=== PATIENT | female | born 1970 | race African-American/Black ===

== ENCOUNTER 2016-11-25 15:47 | Day surgery (SDC) | payer OTHER ==
[2016-11-21 12:45] VITALS: BMI 23.6
[2016-11-25] MEDS ORDERED: PROPOFOL 20 ML ONE (17:10)
[2016-11-25] MEDS ORDERED: MIDAZOLAM HCL 2 MG/2 ML SINGLE DOSE VIAL ONE (17:10)
[2016-11-25] MEDS ORDERED: LEVOFLOXACIN 500 MG PREMIX BAG IVPB ONE (17:17)
[2016-11-25] MEDS ORDERED: ONDANSETRON 4 MG/2 ML VIAL IVPUSH PRN (17:50)
[2016-11-25] MEDS ORDERED: ACETAMINOPHEN 325 MG TABLET (FP) PO PRN (17:50)
[2016-11-25 18:11] VITALS: TEMP 98.5
--- NOTE | 2016-11-25 18:22 | OP ---
Operative Note - Note: Operative Date: 11/25/16 Pre-Operative Diagnosis: right renal stones Operation: right ESWL Findings: 4mm x 4mm right mid pole renal stone and 3mm x 3mm right lower pole renal stone Post-Operative Diagnosis: Same as Pre-op Surgeon: Gentry Keating Anesthesia: Fractional
[2016-11-25 19:18] VITALS: BP 112/68; PULSE 63
--- NOTE | 2016-11-26 09:47 | OP ---
DATE OF OPERATION: 11/25/2016 PREOPERATIVE DIAGNOSIS: Right renal stones. POSTOPERATIVE DIAGNOSIS: Right renal stones. PROCEDURE: Right extracorporeal shock wave lithotripsy. ATTENDING SURGEON: Juana Roy MD ANESTHESIA: Fractional. DESCRIPTION OF OPERATION: Patient was brought in the operating room and placed in supine position on the operating room table. Ultrasonography and fluoroscopy were performed. Two stones were identified in the right kidney, a mid-pole stone measuring 4 mm x 4 mm and a lower-pole stone measuring 3 mm x 3 mm. At this point, fractional anesthesia and antibiotics were administered; 1500 impulses at 20 joules of power were administered to each of the stones with excellent fragmentation under real-time ultrasonography and fluoroscopy. No complications were noted. Disposition of the patient was to recovery room. JUANA ROY M.D. /[id number]
== END 2016-11-25 19:18 | disposition home or self-care (01) ==
LOC: JASU-SURG 15:47
PROVIDERS: ATTEND Urology
PROC: 0TF3XZZ Fragmentation in Right Kidney Pelvis, External Approach (ICD-10-PCS; principal; 2016-11-25 17:15)
DX: N20.0 Calculus of kidney (principal)
CPT/HCPCS: 84703; 94760

== ENCOUNTER 2022-08-25 20:27 | Emergency (ER) | payer BC, OTHER ==
[2022-08-25 20:31] VITALS: BP 165/112; PULSE 85; RESP 18; TEMP 97.9; BMI 23.1
[2022-08-25] MEDS ORDERED: ONDANSETRON *ODT* 4 MG TABLET SL ONE ×2 (21:04→22:18)
[2022-08-25] MEDS ORDERED: ONDANSETRON *ODT* 4 MG TABLET ONE ×2 (21:24→22:41)
== END 2022-08-25 23:28 | disposition home or self-care (01) ==
LOC: JER 20:27
DX: R11.2 Nausea with vomiting, unspecified (principal); R19.7 Diarrhea, unspecified; A05.9 Bacterial foodborne intoxication, unspecified
CPT/HCPCS: 99283-25; Q0162

== ENCOUNTER 2022-10-07 06:09 | Emergency (ER) | payer BC ==
[2022-10-07 06:16] VITALS: TEMP 98.3; BMI 23.5
[2022-10-07] MEDS ORDERED: DEXAMETHASONE SOD PHOSPHATE 10 MG/1 ML VIAL ONE (06:17)
[2022-10-07] MEDS ORDERED: ALBUTEROL SO4 2.5/IPRATROPIUM 0.5 INH SOL 3 ML VIAL.NEB. NEB ONE (06:17)
[2022-10-07] MEDS ORDERED: DEXAMETHASONE SOD PHOSPHATE 10 MG/1 ML VIAL IM ONE (06:20)
[2022-10-07] MEDS: ALBUTEROL SO4 2.5/IPRATROPIUM 0.5 INH SOL 3 ML VIAL.NEB. NEB SCH ×3 (06:24→06:27)
[2022-10-07] MEDS ORDERED: MAGNESIUM SULF 50% (8.12 MEQ/2 ML-1 GM VIAL) IVPB ONE (06:33)
[2022-10-07] MEDS ORDERED: MAGNESIUM SULFATE IN WATER 2 GM/50 ML IVPB IVPB ONE (07:15)
[2022-10-07 07:27] LABS: BASO % 0.5 % (0-2.0); EOS % 3.2 % (0-4.5); HEMATOCRIT 35.3 % (32.4-45.2); HEMOGLOBIN 10.9 GM/dL (10.7-15.3); LYMPH % 20.7 % (8-40); MCH 22.6 pg (25.7-33.7); MCHC 30.7 g/dl (32.0-36.0); MEAN CELL VOLUME 73.5 fl (80-96); MEAN PLT VOLUME 9.5 fl (7.5-11.1); MONO % 7.3 % (3.8-10.2); NEUT % 68.3 % (42.8-82.8); PLATELET COUNT 254 10^3/uL (134-434); RBC 4.81 M/mm3 (3.60-5.2); RDW 18.2 % (11.6-15.6); WHITE BLOOD COUNT 7.6 K/mm3 (4.0-10.0)
[2022-10-07 07:40] LABS: POTASSIUM 3.6 mmol/L (3.5-5.1)
[2022-10-07 07:42] LABS: CALCIUM 9.5 mg/dL (8.5-10.1)
[2022-10-07 07:43] LABS: ALBUMIN 3.9 g/dl (3.4-5.0); BLOOD UREA NITROGEN 10.7 mg/dL (7-18)
[2022-10-07 07:46] LABS: CREATININE 0.9 mg/dL (0.55-1.3)
[2022-10-07 07:48] LABS: BILIRUBIN,TOTAL 0.2 mg/dL (0.2-1); TOT PROT 7.6 g/dl (6.4-8.2)
[2022-10-07 08:26] VITALS: BP 134/86; PULSE 68; RESP 18
== END 2022-10-07 08:18 | disposition home or self-care (01) ==
LOC: JER 06:09
PROC: 3E0F7GC Introduction of Other Therapeutic Substance into Respiratory Tract, Via Natural or Artificial Opening (ICD-10-PCS; principal; 2022-10-07)
PROC: 3E023GC Introduction of Other Therapeutic Substance into Muscle, Percutaneous Approach (ICD-10-PCS; 2022-10-07)
DX: J45.21 Mild intermittent asthma with (acute) exacerbation (principal); R07.89 Other chest pain; R06.02 Shortness of breath; R06.82 Tachypnea, not elsewhere classified
CPT/HCPCS: 36415; 71045-TC-FY; 80053; 83735; 85025; 93005; 93010; 99285-25; J1100